=== PATIENT | female | born 1985 | race Two or more races ===

== ENCOUNTER 2016-12-30 12:07 | Emergency (ER) | payer SELFPAY ==
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
--- NOTE | 2016-12-30 13:36 | RAD ---
Indication: Right shoulder pain. 3 views of the right shoulder demonstrates no fracture. No other bone or joint abnormality is identified. IMPRESSION: Unremarkable right shoulder.
--- NOTE | 2016-12-30 13:37 | RAD ---
Indication: Left ankle pain and injury. 3 views of left ankle demonstrate soft tissue swelling laterally. There is a fracture of the medial malleolus. A nondisplaced fracture of the distal fibula is not excluded. IMPRESSION: Fracture of the medial malleolus and likely nondisplaced fracture of the distal fibula with marked soft tissue swelling laterally.
[2016-12-30] MEDS ORDERED: Ibuprofen TAB* 600 MG PO ONE (13:57)
== END 2016-12-30 15:03 | disposition home or self-care (01) ==
LOC: ED 12:07
DX: S82.842A Displaced bimalleolar fracture of left lower leg, initial encounter for closed fracture (principal); V49.9XXA Car occupant (driver) (passenger) injured in unspecified traffic accident, initial encounter; Y93.9 Activity, unspecified; Y92.89 Other specified places as the place of occurrence of the external cause
CPT/HCPCS: 99282; A9270-GY